=== PATIENT | male | born 1985 | race Two or more races ===

== ENCOUNTER 2021-05-27 19:42 | Inpatient (IN) | payer MEDICAID, OTHER ==
[~2021-05-27] VITALS: Ht 188 cm; Wt 104.5 kg
[~2021-05-27 19:42] MED LIST: epiNEPHrine 0.1mg/ml 10ml syringe ONE; etomidate 2mg/ml inj. ONE; rocuronium 10mg/ml inj IV ONE
[2021-05-27] MEDS ORDERED: ondansetron/PF 4mg/2ml inj IV ONE (19:45)
[2021-05-27] MEDS ORDERED: LORazepam 2 mg/ml vial IV ONE (19:45)
[2021-05-27] MEDS ORDERED: normal saline 1000ml 1,000 ML IV ONE (19:50)
--- NOTE | 2021-05-27 19:56 | NUR ---
1744 narcan 4 mg iv, pt awakened within a minute and moaning, then began vomiting . pt rolled to the side with assist and continued vomiting. Dr. Cruz, RT Frederick and Apple at bedside. Primary RN Jovani at bedside, Jackelyn Hendrix RN, Wilfred Carson RN , also at bedside. pt admitting to snorting heroin and fentanyl. MD concerned about aspiration. Pt remains awake. Currently on NRB at 15L. stats 91-93%, RR Given ativan 1 mg iv at 1954.
[2021-05-27 20:10] LABS: BASOPHILS % (AUTO) 0.3 % (0-1); EOSINOPHILS # (AUTO) 0.2 X10'3 (0-0.9); LYMPHOCYTES # (AUTO) 8.6 X10'3 (1.1-4.8); MONOCYTES # (AUTO) 1.2 X10'3 (0-0.9); MONOCYTES % (AUTO) 7.3 % (2-12)
[2021-05-27 20:12] LABS: EOSINOPHILS % (AUTO) 1.1 % (0-6); HEMATOCRIT 46.8 % (42.0-52.0); HEMOGLOBIN 15.2 g/dl (14.0-17.9); LYMPHOCYTES % (AUTO) 52.2 % (21-51); MEAN CORPUSCULAR HEMOGLOBIN 30.7 PG (27.0-31.0); MEAN CORPUSCULAR HGB CONC 32.6 g/dL (33.0-36.5); MEAN CORPUSCULAR VOLUME 94.2 FL (78-98); MEAN PLATELET VOLUME 8.9 FL (7.4-10.4); NEUTROPHILS # (AUTO) 6.4 X10'3 (1.8-7.7); NEUTROPHILS % (AUTO) 39.1 % (42-75); PLATELET COUNT 383 X10'3 (140-440); RED BLOOD COUNT 4.96 X10'6 (4.70-6.10); WHITE BLOOD COUNT 16.4 X10'3 (4.5-11.0)
--- NOTE | 2021-05-27 20:12 | NUR ---
covid swab collected. Pts cell phone ringing and pt asked if he wants us to notify anyone and who his contact is. Pt reprots he does not want anyne notificed at this time.
[2021-05-27 20:25] LABS: ALANINE AMINOTRANSFERASE 37 U/L (12-78); ALBUMIN 2.9 G/DL (3.4-5.0); ALBUMIN/GLOBULIN RATIO 0.7 (1.1-1.5); ALKALINE PHOSPHATASE 109 IU/L (46-116); BILIRUBIN,TOTAL 0.4 MG/DL (0.1-1.0); BLOOD UREA NITROGEN 13 MG/DL (7-18); BUN/CREATININE RATIO 8.4 (5.4-32.0); CALCIUM 7.7 MG/DL (8.5-10.1); CHLORIDE 103 MMOL/L (99-107); CREATININE 1.55 MG/DL (0.60-1.10); MAGNESIUM 2.4 MG/DL (1.5-2.4); TOTAL CARBON DIOXIDE 23.2 MMOL/L (24-32); eGFR 52 ML/MIN
[2021-05-27 20:41] LABS: ANION GAP 11 (8-16); GLUCOSE 315 MG/DL (70-104); SODIUM 137 MMOL/L (135-145)
[2021-05-27] MEDS ORDERED: naloxone 2mg/2ml inj IV STA (20:42)
[2021-05-27 20:46] LABS: ASPARTATE AMINO TRANSFERASE 34 U/L (10-37)
[2021-05-27 20:50] LABS: POTASSIUM 2.8 MMOL/L (3.5-5.1)
[2021-05-27] MEDS ORDERED: potassium Cl 10 mEq/100mL bag IV ONE (21:05)
[2021-05-27] MEDS ORDERED: potassium Cl 40MEQ/1/2NS 520ml 520 ML IV PRN (22:00)
[2021-05-27] MEDS ORDERED: magnesium 4gm in 100ml NS 100 ML IV PRN (22:00)
[2021-05-27] MEDS ORDERED: acetaminophen 325mg tablet PO PRN (22:00)
[2021-05-27] MEDS ORDERED: ondansetron/PF 4mg/2ml inj IV PRN (22:00)
[2021-05-27] MEDS ORDERED: magnesium hydroxide 30ml (MOM) UD suspension PO PRN (22:00)
[2021-05-27] MEDS ORDERED: ipratropium/albuterol 3ml nebule NEB PRN (22:00)
[2021-05-27] MEDS ORDERED: PERFLUTREN PROTEIN-A MICROSPHR (Optison) 0.22 MG/ML 3ML VIAL IV PRN (22:00)
[2021-05-27] MEDS ORDERED: naloxone 0.4 mg/ml inj IV PRN (22:00)
[2021-05-27] MEDS ORDERED: magnesium 2GM in 50ml NS 50 ML IV PRN (22:00)
[2021-05-27 22:07] LABS: ABG BASE EXCESS -5.6 mmol/L (-2.0-2.0); ABG HCO3 22.2 mmol/L (22.0-26.0); ABG OXYGEN SATURATION 93.6 % (94-97); ABG PCO2 (T) 51.5 mmHg (35.0-48.0); ABG PO2 (T) 77.2 mmHg (75.0-100.0); FCOHb 0.8 % (0.0-3.9); FMetHb 0.1 % (0.0-1.5); FO2Hb 92.8 % (94-97); TOTAL HEMOGLOBIN 16.4 G/dl (14.0-18.0)
[2021-05-27] MEDS ORDERED: naloxone 2mg/2ml inj 2 MG in normal saline 500ml IV soln 498 ML IV SCH (22:15)
[2021-05-27] MEDS: naloxone 2mg/2ml inj 2 MG in normal saline 500ml IV soln 498 ML IV SCH (22:35)
[2021-05-27] MEDS: ringers solution, lacted 1,000 ML IV SCH (23:21)
--- NOTE | 2021-05-28 00:35 | NUR ---
RT AT BEDSIDE. PT TAKEN OFF NRB AND PLACED ON VENTURI MASK AT 40%. PT GIVEN BLANKET AND JUICE. AWAITIN GIPA. REMAINS ON NARCAN GTT AND LR AT 150 INFUSING
[2021-05-28] MEDS ORDERED: potassium Cl 10 mEq/100mL bag IV ONE (00:40)
[2021-05-28] MEDS ORDERED: LISI40TA13 PO (01:27)
[2021-05-28] MEDS ORDERED: QUET-1 PO (01:27)
[2021-05-28] MEDS: ringers solution, lacted 1,000 ML IV SCH ×3 (04:40→18:00)
--- NOTE | 2021-05-28 04:40 | NUR ---
pt switched tentatively from venturi to nasal cannula. pt is currently on 5 L on NC and sats are at 95%
[2021-05-28 05:49] LABS: BASOPHILS % (AUTO) 0.2 % (0-1); EOSINOPHILS % (AUTO) 0 % (0-6); HEMATOCRIT 44.5 % (42.0-52.0); HEMOGLOBIN 14.8 g/dl (14.0-17.9); LYMPHOCYTES # (AUTO) 0.6 X10'3 (1.1-4.8); LYMPHOCYTES % (AUTO) 4.1 % (21-51); MEAN CORPUSCULAR HEMOGLOBIN 30.3 PG (27.0-31.0); MEAN CORPUSCULAR HGB CONC 33.3 g/dL (33.0-36.5); MEAN CORPUSCULAR VOLUME 90.9 FL (78-98); MEAN PLATELET VOLUME 8.3 FL (7.4-10.4); MONOCYTES # (AUTO) 0.7 X10'3 (0-0.9); NEUTROPHILS # (AUTO) 13.3 X10'3 (1.8-7.7); NEUTROPHILS % (AUTO) 90.7 % (42-75); PLATELET COUNT 258 X10'3 (140-440); RED CELL DISTRIBUTION WIDTH 12.9 % (11.5-14.5); WHITE BLOOD COUNT 14.7 X10'3 (4.5-11.0)
[2021-05-28 06:03] LABS: ALANINE AMINOTRANSFERASE 33 U/L (12-78); ALBUMIN/GLOBULIN RATIO 0.8 (1.1-1.5); ALKALINE PHOSPHATASE 78 IU/L (46-116); ANION GAP 5 (8-16); ASPARTATE AMINO TRANSFERASE 32 U/L (10-37); BILIRUBIN,TOTAL 0.6 MG/DL (0.1-1.0); BLOOD UREA NITROGEN 13 MG/DL (7-18); BUN/CREATININE RATIO 13.4 (5.4-32.0); CHLORIDE 106 MMOL/L (99-107); CREATININE 0.97 MG/DL (0.60-1.10); GLUCOSE 142 MG/DL (70-104); POTASSIUM 4.5 MMOL/L (3.5-5.1); SODIUM 138 MMOL/L (135-145); TOTAL PROTEIN 6.7 G/DL (6.4-8.2); eGFR 89 ML/MIN
[2021-05-28 06:06] LABS: MAGNESIUM 1.6 MG/DL (1.5-2.4); PHOSPHORUS 3.4 MG/DL (2.3-4.5)
--- NOTE | 2021-05-28 06:29 | NUR ---
PT STANDING AT BEDSIDE TO VOID IN URINIAL. STANDING INDEPENDANTLY AND INTERACTING APPROPRIATELY. VSS. REMAINS ON NARCAN GTT. 4 L NC SATS 95%
--- NOTE | 2021-05-28 08:37 | NUR ---
pt sleeping no distress noted.
[2021-05-28] MEDS: pantoprazole 40mg Tablet.DR PO SCH (09:15)
[2021-05-28] MEDS: enoxaparin 40mg/0.4ml syringe SUBCUT SCH (09:15)
--- NOTE | 2021-05-28 11:52 | NUR ---
echo at bedside
--- NOTE | 2021-05-28 12:14 | NUR ---
spoke with dr calderón. ordered to ok to stop narcan gtt. monitor bp and o2. stated will switch to pcu in a few hours.
[2021-05-28] MEDS: naloxone 2mg/2ml inj 2 MG in normal saline 500ml IV soln 498 ML IV SCH (18:34)
[2021-05-28] MEDS ORDERED: vancomycin/NS 1 GM ADD-VANTAGE 250 ML X 1 DOSE IV SCH (21:00)
[2021-05-29] MEDS: ringers solution, lacted 1,000 ML IV SCH (00:40)
[2021-05-29] MEDS: acetaminophen 325mg tablet PO PRN ×4 (05:53→21:32)
--- NOTE | 2021-05-29 06:52 | NUR ---
Patient in room ED 5. I have received report from Mary GOODE and had the opportunity to ask questions and assume patient care.
[2021-05-29 07:00] VITALS: BP 155/107
[2021-05-29 07:10] LABS: BASOPHILS % (AUTO) 0.3 % (0-1); EOSINOPHILS # (AUTO) 0.1 X10'3 (0-0.9); EOSINOPHILS % (AUTO) 0.7 % (0-6); HEMATOCRIT 43.2 % (42.0-52.0); HEMOGLOBIN 14.5 g/dl (14.0-17.9); LYMPHOCYTES # (AUTO) 1.3 X10'3 (1.1-4.8); LYMPHOCYTES % (AUTO) 12.4 % (21-51); MEAN CORPUSCULAR HEMOGLOBIN 30.7 PG (27.0-31.0); MEAN CORPUSCULAR HGB CONC 33.6 g/dL (33.0-36.5); MEAN CORPUSCULAR VOLUME 91.1 FL (78-98); MEAN PLATELET VOLUME 8.3 FL (7.4-10.4); MONOCYTES # (AUTO) 0.7 X10'3 (0-0.9); MONOCYTES % (AUTO) 6.6 % (2-12); NEUTROPHILS # (AUTO) 8.1 X10'3 (1.8-7.7); PLATELET COUNT 255 X10'3 (140-440); RED BLOOD COUNT 4.74 X10'6 (4.70-6.10); WHITE BLOOD COUNT 10.2 X10'3 (4.5-11.0)
[2021-05-29 07:23] LABS: ALANINE AMINOTRANSFERASE 28 U/L (12-78); ALBUMIN/GLOBULIN RATIO 0.7 (1.1-1.5); ALKALINE PHOSPHATASE 75 IU/L (46-116); ANION GAP 9 (8-16); ASPARTATE AMINO TRANSFERASE 21 U/L (10-37); BILIRUBIN,TOTAL 0.7 MG/DL (0.1-1.0); BLOOD UREA NITROGEN 8 MG/DL (7-18); BUN/CREATININE RATIO 7.8 (5.4-32.0); CALCIUM 8.6 MG/DL (8.5-10.1); CHLORIDE 103 MMOL/L (99-107); CREATININE 1.02 MG/DL (0.60-1.10); GLUCOSE 148 MG/DL (70-104); PHOSPHORUS 2.3 MG/DL (2.3-4.5); POTASSIUM 3.8 MMOL/L (3.5-5.1); SODIUM 138 MMOL/L (135-145); TOTAL CARBON DIOXIDE 26.5 MMOL/L (24-32); TOTAL PROTEIN 7.2 G/DL (6.4-8.2); eGFR 84 ML/MIN
[2021-05-29] MEDS: pantoprazole 40mg Tablet.DR PO SCH (09:19)
[2021-05-29] MEDS: enoxaparin 40mg/0.4ml syringe SUBCUT SCH (09:20)
--- NOTE | 2021-05-29 09:42 | NUR ---
Problems reprioritized. Patient report given, questions answered & plan of care reviewed with Greg GOODE.
[2021-05-29] MEDS ORDERED: LOSA100T57 PO (12:51)
[2021-05-29 15:00] VITALS: BP 145/92
[2021-05-29 19:00] VITALS: BP 138/94
[2021-05-29 22:00] VITALS: BP 139/88
[2021-05-30] VITALS (10 sets, daily range): BP systolic 131–157; BP diastolic 56–100
[2021-05-30] MEDS: acetaminophen 325mg tablet PO PRN ×4 (03:11→22:46)
--- NOTE | 2021-05-30 06:05 | NUR ---
Report again given to Greg GOODE. Questions asked and answered, care of patients assumed by Greg
[2021-05-30 06:35] LABS: BASOPHILS % (AUTO) 0.3 % (0-1); EOSINOPHILS # (AUTO) 0.1 X10'3 (0-0.9); EOSINOPHILS % (AUTO) 1.3 % (0-6); HEMATOCRIT 41.7 % (42.0-52.0); HEMOGLOBIN 14.3 g/dl (14.0-17.9); LYMPHOCYTES # (AUTO) 1.9 X10'3 (1.1-4.8); LYMPHOCYTES % (AUTO) 20.1 % (21-51); MEAN CORPUSCULAR HEMOGLOBIN 30.6 PG (27.0-31.0); MEAN CORPUSCULAR HGB CONC 34.2 g/dL (33.0-36.5); MEAN CORPUSCULAR VOLUME 89.4 FL (78-98); MEAN PLATELET VOLUME 8.4 FL (7.4-10.4); MONOCYTES # (AUTO) 0.6 X10'3 (0-0.9); MONOCYTES % (AUTO) 6.8 % (2-12); NEUTROPHILS # (AUTO) 6.8 X10'3 (1.8-7.7); NEUTROPHILS % (AUTO) 71.5 % (42-75); PLATELET COUNT 282 X10'3 (140-440); RED BLOOD COUNT 4.67 X10'6 (4.70-6.10); WHITE BLOOD COUNT 9.5 X10'3 (4.5-11.0)
[2021-05-30 06:57] LABS: ALANINE AMINOTRANSFERASE 24 U/L (12-78); ALBUMIN 3.1 G/DL (3.4-5.0); ALBUMIN/GLOBULIN RATIO 0.7 (1.1-1.5); ALKALINE PHOSPHATASE 75 IU/L (46-116); ANION GAP 10 (8-16); ASPARTATE AMINO TRANSFERASE 14 U/L (10-37); BILIRUBIN,TOTAL 0.8 MG/DL (0.1-1.0); BLOOD UREA NITROGEN 8 MG/DL (7-18); BUN/CREATININE RATIO 8.6 (5.4-32.0); CALCIUM 8.8 MG/DL (8.5-10.1); CHLORIDE 104 MMOL/L (99-107); CREATININE 0.93 MG/DL (0.60-1.10); GLUCOSE 123 MG/DL (70-104); MAGNESIUM 1.9 MG/DL (1.5-2.4); PHOSPHORUS 3.4 MG/DL (2.3-4.5); POTASSIUM 3.7 MMOL/L (3.5-5.1); SODIUM 140 MMOL/L (135-145); TOTAL CARBON DIOXIDE 26.3 MMOL/L (24-32); TOTAL PROTEIN 7.4 G/DL (6.4-8.2); eGFR > 90 ML/MIN
[2021-05-30] MEDS ORDERED: amiodarone 150mg/dext, iso-os 100 ML IV ONE (09:20)
[2021-05-30] MEDS ORDERED: POTASSIUM BICARB 20meq eff tab 20 MEQ TABLET.EFF PO ONE (09:20)
[2021-05-30] MEDS: amiodarone/D5 360MG/200ML BAG 200 ML IV SCH ×2 (10:25→16:14)
--- NOTE | 2021-05-30 10:40 | NUR ---
[facility] INFORMED ME THAT THE PATIENT WENT INTO AFIB WITH RATE IN THE 130-150. NOTIFIED AND AMIO PROTOCOL INITIATED. PT IS ON MOBILE WITH AMIO GTT RUNNING.
[2021-05-30] MEDS: enoxaparin 40mg/0.4ml syringe SUBCUT SCH (11:58)
[2021-05-30] MEDS: pantoprazole 40mg Tablet.DR PO SCH (11:58)
[2021-05-30] MEDS ORDERED: morphine 2 MG/ML inj. syringe IV PRN (13:55)
[2021-05-30] MEDS: ibuprofen tablet 400 MG TABLET PO SCH ×2 (14:54→19:29)
[2021-05-30] MEDS ORDERED: ipratropium/albuterol 3ml nebule NEB PRN (15:40)
[2021-05-30] MEDS: oxymetazoline 15 ML nasal spray NS SCH ×2 (17:48→19:29)
--- NOTE | 2021-05-30 18:24 | NUR ---
Problems reprioritized. Patient report given, questions answered & plan of care reviewed with Katelyn GOODE.
[2021-05-30] MEDS: ipratropium/albuterol 3ml nebule NEB SCH (20:46)
[2021-05-31] VITALS (11 sets, daily range): BP systolic 115–144; BP diastolic 72–97
[2021-05-31] MEDS: ibuprofen tablet 400 MG TABLET PO SCH ×4 (02:20→19:59)
[2021-05-31] MEDS: amiodarone/D5 360MG/200ML BAG 200 ML IV SCH (02:23)
[2021-05-31] MEDS: ipratropium/albuterol 3ml nebule NEB SCH ×4 (03:00→21:00)
[2021-05-31 07:13] LABS: BASOPHILS % (AUTO) 0.6 % (0-1); EOSINOPHILS # (AUTO) 0.2 X10'3 (0-0.9); EOSINOPHILS % (AUTO) 1.9 % (0-6); HEMATOCRIT 45.5 % (42.0-52.0); HEMOGLOBIN 15.7 g/dl (14.0-17.9); LYMPHOCYTES # (AUTO) 2.1 X10'3 (1.1-4.8); LYMPHOCYTES % (AUTO) 24.2 % (21-51); MEAN CORPUSCULAR HEMOGLOBIN 31.1 PG (27.0-31.0); MEAN CORPUSCULAR HGB CONC 34.6 g/dL (33.0-36.5); MEAN CORPUSCULAR VOLUME 89.9 FL (78-98); MEAN PLATELET VOLUME 8.2 FL (7.4-10.4); MONOCYTES # (AUTO) 0.7 X10'3 (0-0.9); MONOCYTES % (AUTO) 8.2 % (2-12); NEUTROPHILS # (AUTO) 5.6 X10'3 (1.8-7.7); NEUTROPHILS % (AUTO) 65.1 % (42-75); PLATELET COUNT 314 X10'3 (140-440); RED BLOOD COUNT 5.06 X10'6 (4.70-6.10); RED CELL DISTRIBUTION WIDTH 12.6 % (11.5-14.5); WHITE BLOOD COUNT 8.7 X10'3 (4.5-11.0)
[2021-05-31] MEDS: pantoprazole 40mg Tablet.DR PO SCH (07:35)
[2021-05-31] MEDS: enoxaparin 40mg/0.4ml syringe SUBCUT SCH (07:36)
[2021-05-31 07:38] LABS: ALANINE AMINOTRANSFERASE 23 U/L (12-78); ALBUMIN 3.1 G/DL (3.4-5.0); ALBUMIN/GLOBULIN RATIO 0.7 (1.1-1.5); ALKALINE PHOSPHATASE 79 IU/L (46-116); ANION GAP 8 (8-16); ASPARTATE AMINO TRANSFERASE 14 U/L (10-37); BILIRUBIN,TOTAL 0.7 MG/DL (0.1-1.0); BLOOD UREA NITROGEN 12 MG/DL (7-18); BUN/CREATININE RATIO 12.6 (5.4-32.0); CALCIUM 9.5 MG/DL (8.5-10.1); CHLORIDE 104 MMOL/L (99-107); CREATININE 0.95 MG/DL (0.60-1.10); GLUCOSE 121 MG/DL (70-104); MAGNESIUM 1.9 MG/DL (1.5-2.4); PHOSPHORUS 4.4 MG/DL (2.3-4.5); POTASSIUM 4.2 MMOL/L (3.5-5.1); SODIUM 138 MMOL/L (135-145); TOTAL CARBON DIOXIDE 25.9 MMOL/L (24-32); TOTAL PROTEIN 7.8 G/DL (6.4-8.2); eGFR > 90 ML/MIN
--- NOTE | 2021-05-31 11:29 | NUR ---
Initial: Pt admit for cardiac arrest and opioid OD. Pt on a regular diet and eating well with average 75% PO intake. LBM / per I&O, with PRN bowel care available. No nutrition intervention implemented at this time. Will continue to follow. Recommendations: 1) Continue regular diet 2) Monitor need for additional protein 3) Bowel care PRN 4) Scaled weight this admit; weekly scaled weights thereafter Addendum: 05/31/21 at [address] Amended: Links added.
[2021-05-31] MEDS: amiodarone 200mg tablet PO SCH ×2 (13:36→19:59)
[2021-05-31] MEDS: oxymetazoline 15 ML nasal spray NS SCH ×2 (13:37→20:00)
[2021-05-31] MEDS: acetaminophen 325mg tablet PO PRN ×2 (15:53→22:34)
--- NOTE | 2021-05-31 18:10 | NUR ---
Problems reprioritized. Patient report given, questions answered & plan of care reviewed with Katelyn GOODE.
[2021-05-31] MEDS ORDERED: quetiapine 100mg tablet PO SCH (21:00)
--- NOTE | 2021-05-31 21:11 | NUR ---
Patient in room PCU 3012. I have received report from RUSSEL Zepeda and had the opportunity to ask questions and assume patient care.
[2021-06-01] VITALS (7 sets, daily range): BP systolic 123–147; BP diastolic 75–99
[2021-06-01] MEDS: ipratropium/albuterol 3ml nebule NEB SCH ×4 (02:55→22:13)
[2021-06-01] MEDS: ibuprofen tablet 400 MG TABLET PO SCH ×4 (03:30→20:52)
[2021-06-01] MEDS: acetaminophen 325mg tablet PO PRN ×4 (04:43→23:12)
[2021-06-01 06:09] LABS: BASOPHILS % (AUTO) 0.6 % (0-1); EOSINOPHILS # (AUTO) 0.2 X10'3 (0-0.9); EOSINOPHILS % (AUTO) 2.5 % (0-6); HEMATOCRIT 44.4 % (42.0-52.0); HEMOGLOBIN 15.2 g/dl (14.0-17.9); LYMPHOCYTES # (AUTO) 2.2 X10'3 (1.1-4.8); MEAN CORPUSCULAR HEMOGLOBIN 30.5 PG (27.0-31.0); MEAN CORPUSCULAR HGB CONC 34.3 g/dL (33.0-36.5); MEAN CORPUSCULAR VOLUME 88.8 FL (78-98); MEAN PLATELET VOLUME 8.3 FL (7.4-10.4); MONOCYTES # (AUTO) 0.8 X10'3 (0-0.9); MONOCYTES % (AUTO) 10.2 % (2-12); NEUTROPHILS % (AUTO) 60.7 % (42-75); PLATELET COUNT 324 X10'3 (140-440); RED CELL DISTRIBUTION WIDTH 12.8 % (11.5-14.5); WHITE BLOOD COUNT 8.3 X10'3 (4.5-11.0)
[2021-06-01 06:24] LABS: ALANINE AMINOTRANSFERASE 17 U/L (12-78); ALBUMIN 3.1 G/DL (3.4-5.0); ALBUMIN/GLOBULIN RATIO 0.7 (1.1-1.5); ALKALINE PHOSPHATASE 79 IU/L (46-116); ANION GAP 10 (8-16); ASPARTATE AMINO TRANSFERASE 15 U/L (10-37); BILIRUBIN,TOTAL 0.4 MG/DL (0.1-1.0); BLOOD UREA NITROGEN 14 MG/DL (7-18); BUN/CREATININE RATIO 15.4 (5.4-32.0); CALCIUM 9.2 MG/DL (8.5-10.1); CHLORIDE 103 MMOL/L (99-107); CREATININE 0.91 MG/DL (0.60-1.10); GLUCOSE 145 MG/DL (70-104); MAGNESIUM 2.1 MG/DL (1.5-2.4); PHOSPHORUS 4.4 MG/DL (2.3-4.5); SODIUM 137 MMOL/L (135-145); TOTAL CARBON DIOXIDE 24.2 MMOL/L (24-32); TOTAL PROTEIN 7.8 G/DL (6.4-8.2); eGFR > 90 ML/MIN
[2021-06-01 06:29] LABS: POTASSIUM 4.3 MMOL/L (3.5-5.1)
--- NOTE | 2021-06-01 06:47 | NUR ---
Patient in room PCU 3012. I have received report from RUSSEL Thayer and had the opportunity to ask questions and assume patient care.
[2021-06-01] MEDS: pantoprazole 40mg Tablet.DR PO SCH (10:08)
[2021-06-01] MEDS: amiodarone 200mg tablet PO SCH (10:09)
[2021-06-01] MEDS: enoxaparin 40mg/0.4ml syringe SUBCUT SCH (10:10)
[2021-06-01] MEDS: oxymetazoline 15 ML nasal spray NS SCH ×2 (10:10→20:53)
--- NOTE | 2021-06-01 11:23 | NUR ---
Documented Tylenol not reassessed due to timing. I wasn't on shift yet to reassess.
[2021-06-01] MEDS: apixaban 5mg tablet PO SCH ×2 (12:26→20:52)
[2021-06-01] MEDS: amiodarone/D5 360MG/200ML BAG 200 ML IV SCH ×3 (12:27→23:14)
[2021-06-01] MEDS ORDERED: ondansetron 4mg rapidly disintigrating tab PO PRN (12:40)
--- NOTE | 2021-06-01 17:52 | NUR ---
Paged Compensation Vice President Re Alejandro Conway [id number] Pt needs assessed and resources for depression/anxiety please. Thank you Elo [phone]
--- NOTE | 2021-06-01 18:13 | NUR ---
Problems reprioritized. Patient report given, questions answered & plan of care reviewed with RUSSEL Zepeda. Pt sitting up eating dinner at change of shift, all pt needs met at this time.
[2021-06-02] VITALS: BP 139/87
[2021-06-02] MEDS: amiodarone/D5 360MG/200ML BAG 200 ML IV SCH (00:13)
[2021-06-02 02:00] VITALS: BP 135/85
[2021-06-02] MEDS: ibuprofen tablet 400 MG TABLET PO SCH ×2 (02:07→07:44)
[2021-06-02] MEDS: ipratropium/albuterol 3ml nebule NEB SCH ×2 (03:00→09:00)
[2021-06-02 04:00] VITALS: BP 132/86
[2021-06-02] MEDS: acetaminophen 325mg tablet PO PRN (05:58)
[2021-06-02 06:05] LABS: BASOPHILS # (AUTO) 0.1 X10'3 (0-0.2); BASOPHILS % (AUTO) 0.8 % (0-1); EOSINOPHILS # (AUTO) 0.2 X10'3 (0-0.9); EOSINOPHILS % (AUTO) 3.2 % (0-6); HEMATOCRIT 43.5 % (42.0-52.0); HEMOGLOBIN 14.8 g/dl (14.0-17.9); LYMPHOCYTES # (AUTO) 2.1 X10'3 (1.1-4.8); LYMPHOCYTES % (AUTO) 31.1 % (21-51); MEAN CORPUSCULAR HEMOGLOBIN 30.6 PG (27.0-31.0); MEAN CORPUSCULAR VOLUME 90.2 FL (78-98); MEAN PLATELET VOLUME 8.3 FL (7.4-10.4); MONOCYTES # (AUTO) 0.8 X10'3 (0-0.9); MONOCYTES % (AUTO) 11.6 % (2-12); NEUTROPHILS # (AUTO) 3.6 X10'3 (1.8-7.7); NEUTROPHILS % (AUTO) 53.3 % (42-75); PLATELET COUNT 343 X10'3 (140-440); RED BLOOD COUNT 4.82 X10'6 (4.70-6.10); RED CELL DISTRIBUTION WIDTH 12.8 % (11.5-14.5); WHITE BLOOD COUNT 6.8 X10'3 (4.5-11.0)
[2021-06-02 06:41] LABS: ALANINE AMINOTRANSFERASE 22 U/L (12-78); ALBUMIN 3.1 G/DL (3.4-5.0); ALBUMIN/GLOBULIN RATIO 0.7 (1.1-1.5); ALKALINE PHOSPHATASE 73 IU/L (46-116); ANION GAP 7 (8-16); ASPARTATE AMINO TRANSFERASE 13 U/L (10-37); BILIRUBIN,TOTAL 0.3 MG/DL (0.1-1.0); BLOOD UREA NITROGEN 14 MG/DL (7-18); BUN/CREATININE RATIO 13.3 (5.4-32.0); CALCIUM 8.7 MG/DL (8.5-10.1); CHLORIDE 104 MMOL/L (99-107); CREATININE 1.05 MG/DL (0.60-1.10); GLUCOSE 131 MG/DL (70-104); MAGNESIUM 2.2 MG/DL (1.5-2.4); POTASSIUM 4.1 MMOL/L (3.5-5.1); SODIUM 139 MMOL/L (135-145); TOTAL CARBON DIOXIDE 27.7 MMOL/L (24-32); TOTAL PROTEIN 7.5 G/DL (6.4-8.2); eGFR 81 ML/MIN
[2021-06-02 07:00] VITALS: BP 111/68
[2021-06-02] MEDS: apixaban 5mg tablet PO SCH (07:44)
[2021-06-02] MEDS: pantoprazole 40mg Tablet.DR PO SCH (07:44)
[2021-06-02] MEDS: enoxaparin 40mg/0.4ml syringe SUBCUT SCH (07:46)
[2021-06-02] MEDS ORDERED: amiodarone 200mg tablet PO SCH (09:50)
[2021-06-02] MEDS: oxymetazoline 15 ML nasal spray NS SCH (10:47)
[2021-06-02 11:00] VITALS: BP 124/72
--- NOTE | 2021-06-02 12:21 | NUR ---
0900 SVN TRIAGED. THERAPIST NOT AVAILABLE
[2021-06-02] MEDS ORDERED: AMIO200T67 PO (12:29)
[2021-06-02] MEDS ORDERED: APIX5TAB3 PO (12:29)
[2021-06-02] MEDS ORDERED: IBUP-1984 PO (12:29)
--- NOTE | 2021-06-02 13:55 | NUR ---
Patient stable for discharge per md orders. All pt belongings collected and sent with pt. All instructions were given to pt, questions answered appropriately. PIV discontinued, cannula intact. Tele discontinued, manager telemetry notified. New prescriptions were e-script to [facility], 10 day indigent Rxs sent to [facility] [address]. Walked pt to [facility].
== END 2021-06-02 13:55 | disposition home or self-care (01) | DRG 917 ==
LOC: ER 19:43 → EEVIPCON 22:29 → ED HOLD 22:29 → PCU 3S 05-29 07:00
PROVIDERS: ADMIT Internal Medicine; ATTEND Internal Medicine
PROC: 5A12012 Performance of Cardiac Output, Single, Manual (ICD-10-PCS; principal; 2021-05-27)
DX: T40.2X4A Poisoning by other opioids, undetermined, initial encounter (principal); I46.9 Cardiac arrest, cause unspecified; J69.0 Pneumonitis due to inhalation of food and vomit; N17.9 Acute kidney failure, unspecified; E11.65 Type 2 diabetes mellitus with hyperglycemia; T17.908A Unspecified foreign body in respiratory tract, part unspecified causing other injury, initial encounter; E87.6 Hypokalemia; J02.9 Acute pharyngitis, unspecified; R07.81 Pleurodynia; I48.0 Paroxysmal atrial fibrillation; Z20.822 Contact with and (suspected) exposure to COVID-19; Z79.01 Long term (current) use of anticoagulants; Z88.0 Allergy status to penicillin; Y92.098 Other place in other non-institutional residence as the place of occurrence of the external cause
CPT/HCPCS: 36415; 36600; 71045; 80053; 82803; 82948; 83735; 83880; 84100; 84484; 85018; 85025; 87635; 93005; 93306; 94760; 94799; 96374; 96375; 96376; 99291; 99292; C9803; G0378; J0171; J1650; J2060; J2310; J2405; J3480; J7030; J7040; J7120